=== PATIENT | male | born 1980 | race Caucasian/White ===

== ENCOUNTER 2018-06-07 08:31 | Inpatient (IN) | END 2018-06-08 15:00 | disposition home or self-care (01) | DRG 455 ==

== ENCOUNTER 2019-05-15 11:36 | Day surgery (SDC) | payer BC, OTHER ==
[2019-05-12 15:52] VITALS: Ht 182.9 cm; Wt 78.4 kg
[2019-05-15] VITALS (19 sets, daily range): BP systolic 111–150; BP diastolic 72–90; PULSE 80–91; RESP 10–21
[~2019-05-15] VITALS: Ht 182.9 cm; Wt 78.4 kg
[~2019-05-15 11:36] MED LIST: CEFAZOLIN 2 GM/50 ML (PMX) 50 ML IVPB ONE; DILT120C79 PO; GABA400C14 PO; LACTATED RINGER'S 1,000 ML IV ONE; PREG50CA PO
[2019-05-15] MEDS ORDERED: MIDAZOLAM 1 MG/ML 2 ML INJ ONE (14:16)
[2019-05-15] MEDS ORDERED: CEFAZOLIN 1 GM INJ ONE (14:16)
[2019-05-15] MEDS ORDERED: ROCURONIUM 50 MG INJ ONE (14:16)
[2019-05-15] MEDS ORDERED: NEOSTIGMINE 3 MG/3 ML SYRINGE ONE (14:16)
[2019-05-15] MEDS ORDERED: GLYCOPYRROLATE 0.4 MG INJ ONE (14:16)
[2019-05-15] MEDS ORDERED: FENTAnyl 50 MCG/ML VIAL ONE ×2 (14:16→15:52)
[2019-05-15] MEDS ORDERED: PROPOFOL 20 ML ONE (14:16)
[2019-05-15] MEDS ORDERED: ONDANSETRON 4 MG INJ ONE (14:17)
[2019-05-15] MEDS ORDERED: DEXAMETHASONE 4 MG/ML 5 ML INJ ONE (14:17)
[2019-05-15] MEDS ORDERED: THROMBIN 5000 UNIT (RECOTHROM) VIAL ONE (14:27)
[2019-05-15] MEDS ORDERED: GELATIN SIZE 100 SPONGE ONE (14:27)
[2019-05-15] MEDS ORDERED: BUPIVACAINE 0.25%/EPI (SDV) 30 ML INJ ONE (14:28)
[2019-05-15] MEDS ORDERED: POLYMYXIN/BACITRACIN 1L IRRIG ONE (14:28)
[2019-05-15] MEDS ORDERED: D5W-0.45 NACL + KCL 20 MEQ 1,000 ML IV SCH (14:34)
--- NOTE | 2019-05-15 14:34 | HPN ---
Date/Time of Note Date/Time of Note DATE: 05/15/19 TIME: 14:34 Interval H&P Admission Note Pt. seen H&P reviewed: No system changes MAURI POTTER PA-C May 15, 2019 14:34
--- NOTE | 2019-05-15 14:48 | PREAC ---
Date/Time of Note Date/Time of Note DATE: 05/15/19 TIME: 14:45 Anesthesia Eval and Record Evaluation Time Pre-Procedure Interview DATE: 05/15/19 TIME: 14:45 Age 38 Sex male NPO: 8 hrs Preoperative diagnosis RETAINED PAINFUL HARDWARE LUMBOSACRAL Planned procedure BHANU LUMBOSACRAL Past Medical History Past Medical History: Includes Cardio: Arrythmia (FREQUEST PVCs) Surgery & Anesthesia Issues No known issue Meds Anticoagulation: No Beta Rudy within 24 hr: No Reason Beta Rudy not given: Pt. not on B-Rudy Reported Medications Pregabalin* (Lyrica*) 50 Mg Capsule, 50 MG PO TID, CAP 05/12/19 Diltiazem Hcl* (Diltiazem XT) 120 Mg Capsule.sa, 120 MG PO DAILY, #30 CAP 06/07/18 Discontinued Reported Medications Gabapentin* (Gabapentin*) 400 Mg Capsule, 400 MG PO TID, #90 CAP 06/07/18 Current Medications Potassium Chloride/Dextrose/ Sod Cl 1,000 ml @ 100 mls/hr Q10H IV ; Start 05/15/19 at 14:34; Status UNV Acetaminophen/ Hydrocodone Bitart (Madison (10/325)) 1 tab Q4H PRN PO .PAIN 1-5; Start 05/15/19 at 15:00; Status UNV Acetaminophen/ Hydrocodone Bitart (Madison (10/325)) 2 tab Q4H PRN PO .PAIN 6-10; Start 05/15/19 at 15:00; Status UNV Hydromorphone HCl (Dilaudid) 0.2 mg Q1H PRN IV .BREAKTHROUGH PAIN; Start 05/15 at 15:00; Status UNV Cefazolin Sodium 50 ml @ 100 mls/hr Q8H IVPB ; Start 05/15/19 at 15:00; Stop 05/16/19 at 07:29; Status UNV Ondansetron HCl (Zofran Inj) 4 mg Q6H PRN IV NAUSEA/VOMITING; Start 05/15/19 at 15:00; Status UNV Bisacodyl (Dulcolax Supp) 10 mg DAILY PRN NV .CONSTIPATION; Start 05/15/19 at 15:00; Status UNV Docusate Sodium (Colace) 100 mg BID PO ; Start 05/15/19 at 21:00; Status UNV Al Hydrox/Mg Hydrox/Simethicone (Mag-Al Plus) 15 ml Q6H PRN PO .CONSTIPATION/DYSPEPSIA; Start 05/15/19 at 15:00; Status UNV Acetaminophen (Tylenol Tab) 650 mg Q4H PRN PO EDWARDS OR TEMP GREATER THAN 101.3F; Start 05/15/19 at 15:00; Status UNV Cyclobenzaprine HCl (Flexeril) 5 mg TID PRN PO .MUSCLE SPASM; Start 05/15/19 at 15:00; Status UNV Phenol (Cepastat Lozenge) 1 lozenge PRN PRN MT .SORE THROAT; Start 05/15/19 at 15:00; Status UNV Diphenhydramine HCl (Benadryl) 25 mg Q6H PRN PO .ITCHING; Start 05/15/19 at 15:00; Status UNV Diphenhydramine HCl (Benadryl) 25 mg Q6H PRN IV .ITCHING; Start 05/15/19 at 15:00; Status UNV Naloxone HCl (Narcan) 0.2 mg Q2M PRN IV .RR 8 BREATHS/MIN OR LESS; Start 05/15/19 at 15:00; Status UNV Meds reviewed: Yes Allergies Coded Allergies: No Known Allergy (Unverified , 05/15/19) Allergies Reviewed: Yes Labs/Studies Labs Reviewed: Reviewed by anesthesiologist test: Negative Studies: ECG (SR), CXR (NAPD) Pre-procedure Exam Last vitals Vital Signs Date Temp Pulse Resp B/P (MAP) Pulse Ox O2 O2 Flow FiO2 Time Delivery Rate 05/15/19 98.6 86 16 133/90 100 12:25 (104) Airway: Adequate mouth opening, Adequate thyromental dist Mallampati: Mallampati II Teeth: Normal Lung: Normal Heart: Normal ASA Physical Status ASA physical status: 2 Emergency: None Planned Anesthetic General/MAC: ETT Planned Pain Management Parenteral pain med Pre-operative Attestations Prior to commencing anesthesia and surgery, the patient was re-evaluated, there was verification of: *The patient's identity *The results of appropriate recent lab work and preoperative vital signs *The above evaluation not changing prior to induction *Anesthetic plan, risk benefits, alternative and complications discussed with patient/family; questions answered; patient/family understands, accepts and wishes to proceed. Davion Barron M.D. May 15, 2019 14:48
[2019-05-15] MEDS ORDERED: CEFAZOLIN 1 GM/50 ML (PMX) 50 ML IVPB SCH (15:00)
[2019-05-15] MEDS ORDERED: CYCLOBENZAPRINE 10 MG TAB PO PRN (15:00)
[2019-05-15] MEDS ORDERED: MEPERIDINE 25 MG INJ IV PRN (15:00)
[2019-05-15] MEDS ORDERED: HYDROmorphONE 1 MG/5 ML IV SYRINGE IV PRN ×3 (15:00)
[2019-05-15] MEDS ORDERED: OXYCODONE/ACETAMINOPHEN (5/325) TAB PO PRN ×2 (15:00)
[2019-05-15] MEDS ORDERED: ALBUTEROL 0.083% (NEB) 2.5 MG/3 ML AMP HHN PRN (15:00)
[2019-05-15] MEDS ORDERED: TRIMETHOBENZAMIDE 100 MG/ML VIAL IM PRN (15:00)
[2019-05-15] MEDS ORDERED: HYDROmorphONE 0.5 MG/0.5 ML SYG IV PRN (15:00)
[2019-05-15] MEDS ORDERED: EPHEDrine 25 MG/5 ML SYG IV PRN (15:00)
[2019-05-15] MEDS ORDERED: CEPASTAT LOZENGE MT PRN (15:00)
[2019-05-15] MEDS ORDERED: HYDROCODONE/APAP (10/325) TAB PO PRN ×2 (15:00)
[2019-05-15] MEDS ORDERED: MIDAZOLAM 1 MG/ML 2 ML INJ IV PRN (15:00)
[2019-05-15] MEDS ORDERED: DIPHENHYDRAMINE 25 MG CAP PO PRN (15:00)
[2019-05-15] MEDS ORDERED: AL HYDROX/MG HYDROX/SIMETH 30 ML CUP PO PRN (15:00)
[2019-05-15] MEDS ORDERED: ACETAMINOPHEN 325 MG TAB PO PRN (15:00)
[2019-05-15] MEDS ORDERED: hydrALAzine 20 MG INJ IV PRN (15:00)
[2019-05-15] MEDS ORDERED: IPRATROPIUM (NEB) 0.5 MG/2.5 ML AMP HHN PRN (15:00)
[2019-05-15] MEDS ORDERED: ONDANSETRON 4 MG INJ IV PRN ×2 (15:00)
[2019-05-15] MEDS ORDERED: DIPHENHYDRAMINE 50 MG INJ IV PRN ×2 (15:00)
[2019-05-15] MEDS ORDERED: NALOXONE (0.4 MG/ML) INJ IV PRN (15:00)
[2019-05-15] MEDS ORDERED: FENTAnyl 50 MCG/ML VIAL IV PRN ×2 (15:00)
[2019-05-15] MEDS ORDERED: BISACODYL 10 MG SUPP PR PRN (15:00)
[2019-05-15] MEDS ORDERED: LABETALOL HCL 20MG INJ IV PRN (15:00)
[2019-05-15] MEDS ORDERED: BUPIVACAINE 0.25% (MPF) 30 ML INJ ONE (15:32)
--- NOTE | 2019-05-15 15:54 | SIPON ---
Date/Time of Note Date/Time of Note DATE: 05/15/19 TIME: 15:53 Operative Report Preoperative Diagnosis Retained painful lumbar hardware Postoperative Diagnosis Retained painful lumbar hardware Operation/Procedure Performed Removal of left posterior lumbar hardware Surgeon see signature line financial legal assistant Elzbieta Guerra Anesthesia: general Estimated blood loss: 10 - 50 ml's Transfusion Required none Specimen Hardware Grafts/Implants none Complications none FRITZ PADRON MD May 15, 2019 15:54
--- NOTE | 2019-05-15 15:58 | PAC ---
Date/Time of Note Date/Time of Note DATE: 05/15/19 TIME: 15:58 Post-Anesthesia Notes Post-Anesthesia Note Last documented vital signs Vital Signs Date Temp Pulse Resp B/P (MAP) Pulse Ox O2 O2 Flow FiO2 Time Delivery Rate 05/15/19 98.6 86 16 133/90 100 12:25 (104) Activity: WNL Respiratory function: WNL Cardiovascular function: WNL Mental status: Baseline Pain reasonably controlled: Yes Hydration appropriate: Yes Nausea/Vomiting absent: Yes Davion Barron M.D. May 15, 2019 15:58
[2019-05-15] MEDS: FENTAnyl 50 MCG/ML VIAL IV PRN ×2 (16:02→16:13)
--- NOTE | 2019-05-15 20:09 | OPR ---
DATE OF OPERATION: 05/15/2019 PREOPERATIVE DIAGNOSES: 1. Status post lumbar fusion. 2. Retained painful left-sided posterior lumbar hardware. POSTOPERATIVE DIAGNOSES: 1. Status post lumbar fusion. 2. Retained painful left-sided posterior lumbar hardware. OPERATION PERFORMED: 1. Removal of left posterior lumbar hardware - left L5 and S1 pedicle screws. 2. Use of C-arm fluoroscopy with interpretation without radiologist present. 3. Intraoperative neuromonitoring. PRIMARY SURGEON: Sukhjinder Kim MD HIDE AND SKIN CLASSER: Elzbieta Guerra PA-C NEED FOR MILLWRIGHT: During this spinal surgical procedure, my historian research assistant was used to retract and protect the spinal nerves and dural sac. My historian research assistant also employed the suction catheters to ev acuate blood from the surgical field to improve visualization of the neural structures. The assistan t was medically necessary to facilitate the completion of the surgery in a safe and expeditious [facility] r. [facility] regulations, as well as hospital bylaws, preclude the use of non-licensed [facility] personnel, such as operating room technicians, to perform these functions. FINDINGS: Neuromonitoring throughout the case was normal. Hardware was in place on the left and rem dinora but did not appear to be loose. ESTIMATED BLOOD LOSS: 20 mL DRAINS: None. SPECIMENS: Hardware, sent to pathology. COMPLICATIONS OF PROCEDURES: None. ANESTHESIOLOGIST: Davion Barron MD TYPE OF ANESTHESIA: General. INDICATIONS FOR PROCEDURE: This is a 38-year-old gentleman who had undergone previous lumbar fusion. He had pain in the back and was suspected to be coming from the hardware on the left. Given this, I recommend that he undergo the above procedure. Preoperatively, we discussed risks, benefits, and a lternatives. He understood and wished to proceed. DESCRIPTION OF PROCEDURE IN DETAIL: The patient was identified in the preoperative holding area, giv en Ancef antibiotic, taken to the operating room, where he was successfully placed under general anes thesia. Neuromonitoring leads were placed, sequential compressive devices were applied. Remote intr aoperative neuromonitoring was performed by Dr. Sandoval from 1505 at 1545 to include SSEP, MEP, and EMG, performed by [employer]. The patient was placed on the operating table in the prone posi tion on a Scotty frame. All bony prominences were well padded. The incision site was anesthetized w ith Marcaine and epinephrine. I utilized the patient's left parasagittal incision. I incised down t o dorsal fascia, which was incised with Bovie cautery. I then finger dissected down to the hardware. I removed the setscrews at L5 and S1 bilaterally. I removed the hany and then I removed the pedicle screws at L5 and S1 bilaterally. Once this was done, I irrigated the wound. Hemostasis was achieve d. I closed the wound in layers. I closed deep fascia with #1 Vicryl stitch. I closed subcutaneous tissue with a 2-0 Vicryl stitch. I injected plain Marcaine. Dermabond was placed. I took final im aging studies. The patient was then awakened from anesthesia and taken to the recovery room in stabl e condition. Lap, sponge, and instrument counts correct x2. There were no apparent complications du ring the procedure. The patient will be admitted to the recovery room. Once stable, he will be discharged home with foll owup arranged with the undersigned. Dictated By: SUKHJINDER CROSS/EPI Conf#: [id number] DID#: [id number]
[2019-05-15] MEDS ORDERED: DOCUSATE SODIUM 100 MG CAP PO SCH (21:00)
--- NOTE | 2019-05-18 10:21 | DS ---
DATE OF ADMISSION: 05/15/2019 DATE OF DISCHARGE: 05/15/2019 ADMITTING DIAGNOSIS: Retained painful hardware. DISCHARGE DIAGNOSIS: Retained painful hardware. PROCEDURE: Hardware removal. HOSPITAL COURSE: The patient was admitted to the [facility] after undergoing a hardware removal . His postoperative course was uncomplicated. By postoperative day zero, he was deemed stable for d ischarge with followup with . Dictated By: FRITZ CROSS/EPI Conf#: [id number] DID#: [id number]
== END 2019-05-15 18:00 | disposition home or self-care (01) ==
LOC: SDS 11:36 → MS1 17:04 → SDS 18:00
PROVIDERS: ATTEND Specialist
DX: T84.84XA Pain due to internal orthopedic prosthetic devices, implants and grafts, initial encounter (principal); M54.5 Low back pain; Y79.3 Surgical instruments, materials and orthopedic devices (including sutures) associated with adverse incidents; Y83.8 Other surgical procedures as the cause of abnormal reaction of the patient, or of later complication, without mention of misadventure at the time of the procedure
CPT/HCPCS: 22852; 72100; 86999; 88300; J0690; J1100; J2250; J2405; J2710; J3010